=== PATIENT | male | born 1995 | race African-American/Black ===

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

== ENCOUNTER 2017-05-23 05:00 | Emergency (ER) | payer MEDICAID ==
[~2017-05-23 05:00] MED LIST changes: +DICL75TA PO; -HYDR-3533 PO
[2017-05-23 05:02] VITALS: BP 144/71; PULSE 83; RESP 18; TEMP 98.4; O2SAT 98
== END 2017-05-23 05:03 | disposition left against medical advice (07) ==
LOC: NED 05:00
DX: Z53.21 Procedure and treatment not carried out due to patient leaving prior to being seen by health care provider (principal)
CPT/HCPCS: 99281